=== PATIENT | female | born 1955 | race African-American/Black ===

== ENCOUNTER → 2021-09-21 | Outpatient (CLI) | payer OTHER ==
[2021-09-21 15:12] LABS: CALCIUM 9.1 mg/dL (8.5-10.1); CREATININE 0.9 mg/dL (0.6-1.3); POTASSIUM 3.7 mmol/L (3.5-5.1)
== END ==
LOC: M.LAB 14:06
PROVIDERS: ATTEND Nurse Practitioner
DX: R06.02 Shortness of breath (principal)